=== PATIENT | male | born 1995 | race African-American/Black ===

== ENCOUNTER 2024-10-17 13:09 | Emergency (ER) | payer OTHER ==
[2024-10-17 13:44] LABS: BASO % 0.5 % (0.0-1.0); EOS # 0.7 10*3/uL (0.0-0.4); EOS % 10.7 % (1.0-4.0); MEAN CELL VOLUME 94.3 fl (80.0-94.0); MEAN CORPUSCULAR HGB 31.6 pg (27.0-31.0); MEAN CORPUSCULAR HGB CONC 33.5 g/dl (33.0-37.0); MEAN PLATELET VOLUME 10.2 fl (9.6-12.3); MONO # 0.8 10*3/uL (0.1-1.0); MONO % 13.2 % (3.0-9.0); NEUT # 1.7 10*3/uL (2.3-7.9); NEUT % 28.2 % (47.0-73.0); PLATELET COUNT AUTOMATED 186 10*3/uL (130-400); RED BLOOD COUNT 4.24 10*6/uL (4.50-5.90); RED CELL DISTRI WIDTH 12.1 % (0-14.5); WHITE BLOOD COUNT 6.1 10*3/uL (4.8-10.8)
[2024-10-17 14:03] LABS: BUN 12 mg/dl (9-23); CHLORIDE 104 mmol/L (98-107); POTASSIUM 3.6 mmol/L (3.4-5.1)
== END 2024-10-17 14:08 | disposition home or self-care (01) ==
LOC: ED 13:09
PROVIDERS: Internal Medicine
DX: S20.451A Superficial foreign body of right back wall of thorax, initial encounter (principal); S80.852A Superficial foreign body, left lower leg, initial encounter; R06.02 Shortness of breath; R42 Dizziness and giddiness; R11.0 Nausea; Z04.6 Encounter for general psychiatric examination, requested by authority; X58.XXXA Exposure to other specified factors, initial encounter; Y93.89 Activity, other specified; Y92.89 Other specified places as the place of occurrence of the external cause; Y99.8 Other external cause status